=== PATIENT | male | born 1950 | race Caucasian/White ===

== ENCOUNTER 2021-10-15 07:18 | Outpatient (CLI) | payer OTHER | END 2021-10-15 07:25 | disposition home or self-care (01) | LOC: RX STUDY 07:18 | PROVIDERS: ATTEND Specialist | DX: R13.10 Dysphagia, unspecified (principal) ==

== ENCOUNTER 2023-05-23 18:49 | Emergency (ER) | payer OTHER ==
[~2023-05-23] VITALS: Ht 175.3 cm; Wt 72.6 kg
[2023-05-23] MEDS ORDERED: NORVASC5 MG PO (19:03)
[2023-05-23 19:46] LABS: HEMATOCRIT 30.9 % (39.0-48.0); HEMOGLOBIN 10.6 g/dL (13-16.00); MEAN CELL VOLUME 81.2 fL (80.0-100.00); MEAN CORPUSCULAR HGB CONC 34.5 g/dl (32.0-36.0); PLATELET COUNT 90 K/uL (150-450); RED CELL DISTRIBUTION WIDTH 15.7 % (11.5-14.5)
== END 2023-05-23 22:54 | disposition home or self-care (01) ==
LOC: ER 18:49
PROVIDERS: Emergency Medicine
DX: R55 Syncope and collapse (principal); Z91.041 Radiographic dye allergy status; Z91.013 Allergy to seafood; I10 Essential (primary) hypertension; S42.009A Fracture of unspecified part of unspecified clavicle, initial encounter for closed fracture; W18.39XA Other fall on same level, initial encounter; Y93.89 Activity, other specified; Y92.89 Other specified places as the place of occurrence of the external cause
CPT/HCPCS: 36415; 70450; 73030; 73600; 93005; 96372; 99284; J1885

== ENCOUNTER 2023-06-28 14:22 | Emergency (ER) | payer OTHER ==
[~2023-06-28] VITALS: Ht 188 cm; Wt 73.5 kg
[~2023-06-28 14:22] MED LIST: NORVASC5 MG PO
[2023-06-28 16:48] LABS: HEMATOCRIT 37.8 % (39.0-48.0); HEMOGLOBIN 12.6 g/dL (13-16.00); MEAN CELL VOLUME 83.5 fL (80.0-100.00); MEAN CORPUSCULAR HEMOGLOBIN 27.8 pg (27.00-32.0); MEAN CORPUSCULAR HGB CONC 33.3 g/dl (32.0-36.0); RED BLOOD COUNT 4.52 M/uL (4.00-6.00); RED CELL DISTRIBUTION WIDTH 16.2 % (11.5-14.5)
[2023-06-28 17:01] LABS: PLATELET COUNT 113 K/uL (150-450)
[2023-06-28 17:11] LABS: INR 1.08; PARTIAL THROMBOPLASTIN TIME 23.8 SECONDS (22.0-34.0); PROTHROMBIN TIME 11.3 SECONDS (9.0-11.5)
[2023-06-28 17:12] LABS: CALCIUM 9.8 mg/dL (8.5-10.1); CREATININE SERUM 1.16 mg/dL (0.70-1.30); GFR 61.89; POTASSIUM 4.15 mEq/L (3.5-5.1)
[2023-06-28 18:52] LABS: URINE APPEARANCE Clear; URINE BILIRRUBIN Negative (NEGATIVE); URINE BLOOD Moderate; URINE COLOR Dark Yellow; URINE GLUCOSE Negative (NEGATIVE); URINE LEUKOCYTE Negative; URINE NITRATE Negative; URINE PROTEIN Negative (NEGATIVE)
[2023-06-28 18:56] LABS: URINE BACTERIA 46.6 uL (0.0-1933); URINE EPITHELIAL CELLS 8.4 uL (0.0-38.8); URINE RBC 97.1 uL (0.0-20.8); URINE WBC 6.6 uL (0.0-23.2)
[2023-06-28] MEDS ORDERED: KETO10TA2 PO (21:55)
[2023-06-28] MEDS ORDERED: TRAMADOL HCL50 MG PO (21:55)
== END 2023-06-28 22:15 | disposition home or self-care (01) ==
LOC: ER 14:22
PROVIDERS: General Practice
DX: N20.1 Calculus of ureter (principal); R10.9 Unspecified abdominal pain; E78.00 Pure hypercholesterolemia, unspecified; I10 Essential (primary) hypertension; Z85.89 Personal history of malignant neoplasm of other organs and systems; Z91.041 Radiographic dye allergy status; Z91.013 Allergy to seafood
CPT/HCPCS: 36415; 74176; 96365; 96366; 99284; J1100; J1885; J2270; J2405; J3490; J7042